=== PATIENT | female | born 1980 | race Caucasian/White ===

== ENCOUNTER 2019-07-04 13:53 | Emergency (ER) | payer BC ==
[2019-07-04] MEDS ORDERED: 0.9 % SODIUM CHLORIDE 1000ML 1,000 ML IV ONE (14:11)
[2019-07-04] MEDS ORDERED: KETOROLAC 30 MG/ML VIAL IVP ONE (14:11)
--- NOTE | 2019-07-04 14:12 | Emergency Department Record ---
History of Present Illness - General Chief Complaint: Back Pain/Injury Stated Complaint: LOWER BACK PAIN Time Seen by Provider: 07/04/19 13:59 Source: Patient Mode of Arrival: Ambulatory Limitations: No limitations - History of Present Illness Initial Comments: 38 yo female presents with right flank pain. The pain first started about one week prior. The pain is sharp. In the last 2 days it has wrapped around to the right side. She had some transient nausea. Tmax two days ago was 100.0. She just completed a course of antibiotics for a UTI on Wednesday. No dysuria. No vomiting. No diarrhea. No rash. No cough cold or flu symptoms. She has had a cholecystectomy and tubal ligations. She saw her PCP today. She had blood in her urine and was directed to the ED. MD Complaint: Back pain -: Week(s) Place: Home Radiation: Abdomen Severity: Moderate Quality: Aching, Sharp, Stabbing Consistency: Intermittent Improves With: None Worsens With: Movement Context: Other Associated Symptoms: Nausea/vomiting - Related Data Home Medications Medication Instructions Recorded Confirmed Last Taken Atorvastatin Calcium [Lipitor] 10 mg PO DAILY 07/04/19 07/04/19 Unknown Previous Rx's Medication Instructions Recorded Cyclobenzaprine HCl [Flexeril] 10 mg PO QHS #15 tab 07/04/19 Allergies Allergy/AdvReac Type Severity Reaction Status Date / Time acetaminophen [From [place]] Allergy vomiting Unverified 08/23/18 18:25 amoxicillin Allergy hives Unverified 08/23/18 18:25 bupropion HCl Allergy hives Unverified 08/23/18 18:25 [From Wellbutrin] hydrocodone bitartrate Allergy vomiting Unverified 08/23/18 18:25 [From [place]] Review of Systems Constitutional: Denies: Chills, Fever, Malaise, Weakness Eyes: Denies: Eye discharge ENT: Denies: Congestion, Throat pain Respiratory: Denies: Cough Cardiovascular: Denies: Chest pain, Palpitations, Syncope Endocrine: Denies: Fatigue, Polydipsia, Polyuria Gastrointestinal: Reports: Abdominal pain, Nausea. Denies: Diarrhea, Vomiting Genitourinary: Reports: Hematuria (per her PCP). Denies: Dysuria, Urgency Musculoskeletal: Reports: As per HPI, Back pain Skin: Denies: Bruising, Change in color, Rash Neurological: Denies: Headache Psychiatric: Denies: Anxiety Hematological/Lymphatic: Denies: Easy bleeding, Easy bruising Physical Exam - General General Appearance: Alert, Oriented x3, Cooperative, No acute distress Limitations: No limitations - Head Head exam: Atraumatic, Normal inspection - Eye Eye exam: Normal appearance. negative: Conjunctival injection, Scleral icterus - ENT ENT exam: Normal exam Ear exam: Normal external inspection Nasal Exam: Normal inspection Mouth exam: Normal external inspection - Neck Neck exam: Normal inspection - Respiratory Respiratory exam: Normal lung sounds bilaterally. negative: Respiratory distress - Cardiovascular Cardiovascular Exam: Regular rate, Normal rhythm, Normal heart sounds - GI/Abdominal GI/Abdominal exam: Soft. negative: Distended, Guarding, Rebound, Rigid, Tenderness - Rectal Rectal exam: Deferred - exam: Deferred - Extremities Extremities exam: negative: Pedal edema, Tenderness - Back Back exam: Reports: Normal inspection, CVA tenderness (R). Denies: CVA tenderness (L), Paraspinal tenderness, Rash noted, Tenderness - Neurological Neurological exam: Alert, Oriented X3 - Psychiatric Psychiatric exam: Normal affect, Normal mood. negative: Agitated, Anxious - Skin Skin exam: Dry, Intact, Normal color, Warm Course - Reevaluation(s) Reevaluation #1: 07/04/19 14:51 The labs were reviewed No significant changes on the CBC The CMP was reviewed. No significant changes The UA demonstrated blood otherwise negative for infection. She reports she is on her menstrual cycle. 07/04/19 15:29 The final radiology report was reviewed. No acute abnormality was noted. The patient was instructed to review these findings with their primary care provider for proper follow up. We discussed the results of the tests and questions were answered at the time of discharge. The patient is doing well and is comfortable with DC. DC vitals were reviewed. We discussed at length reasons to immediately return to the ED as well as close follow up. The patient will call the PCP for close follow up of this ED visit to review this visit and the tests performed Medical Decision Making - Lab Data Result diagrams: 07/04/19 14:20 07/04/19 14:20 Disposition Disposition: Discharge Clinical Impression: Right flank pain Disposition: Home, Self-Care Condition: (1) Good Instructions: Low Back Strain (ED) Additional Instructions: Review this ER visit and the tests performed with your family doctor Call your doctor for the next available follow up appointment Return to the ER for a recheck if worse, any new concerns or questions Take the prescriptions provided as directed Prescriptions: Cyclobenzaprine HCl [Flexeril] 10 mg PO QHS #15 tab Forms: Patient Portal Access Time of Disposition: 15:33 Quality - Quality Measures Quality Measures: N/A - Blood Pressure Screening Does Patient Have Any of the Following: No Blood Pressure Classification: Pre-Hypertensive BP Reading Systolic Measurement: 124 Diastolic Measurement: 80 Screening for High Blood Pressure: < Pre-Hypertensive BP, F/U Documented > [G8950] Pre-Hypertensive Follow-up Interventions: Referral to alternative/primary care provider.
[2019-07-04 14:23] LABS: ABSOLUTE NEUTROPHIL COUNT 5.42; BASO % 0.3 % (0-6); EOS % 2.6 % (0-6); GRAN % 61.3 % (47-80); HEMATOCRIT 40.1 % (35.0-47.0); MEAN CELL VOLUME 89.7 fl (81-97); MEAN CORPUSCULAR HEMOGLOBIN 29.1 pg (27-33); MEAN CORPUSCULAR HGB CONC 32.4 g/dl (32-36); MEAN PLATELET VOLUME 10.5 fl (7.4-10.4); MONO % 5.8 % (0-9); PLATELET COUNT 350 K/uL (130-400); RED BLOOD COUNT 4.47 M/uL (3.80-5.40); RED CELL DISTRIBUTION WIDTH 13.2 % (11.5-14.5); WHITE BLOOD COUNT W/O DIFF 8.8 K/uL (4.2-12.2)
[2019-07-04 14:36] LABS: URINE APPEARANCE CLEAR; URINE BILIRUBIN NEGATIVE (NEGATIVE); URINE BLOOD MODERATE (NEGATIVE); URINE COLOR YELLOW; URINE GLUCOSE (UA) NEGATIVE (NEGATIVE); URINE KETONE NEGATIVE (NEGATIVE); URINE LEUKOCYTE ESTERASE NEGATIVE (NEGATIVE); URINE NITRITE NEGATIVE (NEGATIVE); URINE PROTEIN NEGATIVE (NEGATIVE); URINE UROBILINOGEN 0.2 E.U./dL (0.20 - 1.00)
[2019-07-04 14:37] LABS: BLOOD UREA NITROGEN 9 mg/dL (6-20); CREATININE 0.6 mg/dL (0.5-0.9); EST GLOMERULAR FILTRATION RATE > 60 mL/min; TOTAL PROTEIN 7.5 g/dL (6.6-8.7)
[2019-07-04 14:40] LABS: GLUCOSE,RANDOM 90 mg/dL (74-109)
[2019-07-04 14:42] LABS: ALBUMIN 3.8 g/dL (4.0-5.0); ALT/SGPT 16 U/L (<33); AST/SGOT 18 U/L (10.0-35.0)
[2019-07-04 14:43] LABS: ALKALINE PHOSPHATASE 139 U/L (35-104)
[2019-07-04 14:52] LABS: URINE RBC 0 - 2 (NONE SEEN); URINE WBC NONE SEEN (0-2/hpf)
[2019-07-04 14:56] LABS: HCG,QUALITATIVE URINE NEGATIVE (NEGATIVE)
--- NOTE | 2019-07-04 15:22 | CT SCAN REPORT ---
EXAMINATION: CT Abdomen and Pelvis without IV Contrast EXAM DATE: 07/04/2019 2:44 PM TECHNIQUE: Standard protocol CT imaging of the abdomen and pelvis was performed without intravenous c ontrast. INDICATION: sharp right flank pain one week COMPARISON: None ENCOUNTER: Not applicable CT ABDOMEN AND PELVIS FINDINGS: Lung Bases: Included extent of the lung bases are clear. Hepatobiliary: The liver has a normal size with a smooth surface. Status post cholecystectomy. Pancreas: The pancreas is normal. Spleen: The spleen is not enlarged. Adrenals: The adrenal glands are normal. Gastrointestinal: The stomach and small bowel are normal with no obstruction or inflammation. Normal appendix. The large bowel is within normal limits. Reproductive Organs: Unremarkable Lymphatic System: There is no adenopathy within the abdomen or pelvis. Vasculature: Normal caliber abdominal aorta Peritoneum: No free fluid, free air, or inflammation Assessment of the solid organs, soft tissues, and vascular structures is overall limited on noncontra st imaging, IMPRESSION: 1. No acute findings within the abdomen or pelvis. 2. No urinary tract calculi or hydronephrosis. 3. Status post cholecystectomy. Dictated by: Herve Jalloh MD on 07/04/2019 3:19 PM. .
== END 2019-07-04 15:59 | disposition home or self-care (01) ==
LOC: ER 13:53
DX: R10.31 Right lower quadrant pain (principal); M54.5 Low back pain; R50.9 Fever, unspecified; R11.0 Nausea
CPT/HCPCS: 74176; 80053; 81001; 81025; 85025; 96374; 99284; J1885; J7030